=== PATIENT | female | born 1995 | race Hispanic/Latino ===

== ENCOUNTER 2019-10-03 01:28 | Inpatient (IN) | payer SELFPAY ==
[2019-10-03 01:52] VITALS: BMI 31.5
--- NOTE | 2019-10-03 01:58 | PDOC.FPROB ---
FMR OB H&P: HPI - History of Present Illness Chief Complaint: CTX Indentification: 23 yo G1 at 38.5wks by 9.4wk sono History of Present Illness: 23 yo G1 at 38.5wks by 9.4wk sono here for CTX. Has been having them on and off for the past day. Started again this evening and became more constant. No VB/VD/ LOF. Endorses FM. No dysuria. No fevers, chills. Hasn't been checked in clinic. Primary Care Physician: Dr. 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 - Surgical History Sx History: Denies - Social History Social History: Denies TAD - Family History Family History: Father with DM2 FMR OB H&P: Medications - Current Home Medications: Medication Instructions Recorded Confirmed Type Vitamin 1 tablet PO DAILY 10/03/19 10/03/19 History Allergies/Adverse Reactions: Allergies Allergy/AdvReac Type Severity Reaction Status Date / Time No Known Allergies Allergy Verified 10/03/19 01:46 FMR OB H&P: ROS - Review of Systems General: denies: fever/chills, weight/appetite/sleep changes ENT: denies: nasal congestion Cardiovascular: denies: chest pain, edema Gastrointestinal: denies: abdominal pain, diarrhea, constipation Genitourinary (Female): reports: contractions. denies: incontinence, dysuria, vaginal discharge, vaginal pain, vaginal bleeding, vaginal pressure Neurologic: denies: seizures, weakness Integumentary: denies: itching, rash Psychological: denies: depression, anxiety FMR OB H&P: Vital Signs - Heart Tones Baseline: 140 Variability: moderate Acceleration: present Deceleration: absent Category: category 1 [place] contractions every: uterine irritability FMR OB H&P: Physical Exam - Physical Exam General: NAD, awake, alert and oriented HEENT: normocephalic and atraumatic, PERRLA, EOMI, MMM, conjunctiva clear Neck: FROM, trachea midline Breast: symmetric, non-tender Heart: RRR, normal S1/S2 General: CTAB, no respiratory distress, good air movement Abdomen: soft, gravid Musculoskeletal: normal gait and station, pulses present, FROM in all four extremities Skin: no rash, good tugor Psychiatric: intact recent and remote memory, good judgement and insight - Pelvic Exam SVE: FMR OB H&P: A/P - Problem List (1) with 38 completed weeks gestation Status: Acute Code(s): Z3A.38 - 38 WEEKS GESTATION OF Discussion: Date/Time: 10/03/19 0156 23 yo G1 here for labor r/o 1. sIUP at 38 weeks -FHT: Cat I, uterine irritability -SVE: -Patient comfortable, will monitor, PO hydrate -Monitor for signs of active labor This H&P was discussed with Dr. Butterfield who agree with the above documentation and plan. Addendum - Attending - Attending Attestation Date/Time: 10/03/19620 I personally evaluated the patient and discussed the management with Dr. Diaz. I agree with the History, Examination, Assessment and Plan documented above.
--- NOTE | 2019-10-03 02:31 | PDOC.BPN ---
<Maribel Diaz - Last Filed: 10/03/19 02:31> - Brief Progress Note FHT: Cat I CTX q6min Discussed with patient she is not currently in labor; she may continue to experience CTX and discussed labor precautions She lives 5 min away and is comfortable with going home F/u at [facility] <Devan Butterfield - Last Filed: 10/03/19 06:22> Addendum - Attending - Attending Attestation Date/Time: 10/03/19621 I personally evaluated the patient and discussed the management with Dr. Diaz. I agree with the Assessment and Plan documented above.
== END 2019-10-04 09:48 | disposition home or self-care (01) | DRG 833 ==
LOC: L&D/OP 01:28 → L&D 10-04 07:00
PROVIDERS: ADMIT Obstetrics & Gynecology; ATTEND Obstetrics & Gynecology
DX: O62.9 Abnormality of forces of labor, unspecified (principal); Z3A.38 38 weeks gestation of pregnancy
CPT/HCPCS: 99283

== ENCOUNTER 2019-10-03 16:50 | Inpatient (IN) | payer MEDICAID, SELFPAY ==
[2019-10-03] MEDS ORDERED: hydrALAZINE 20 MG/ML VIAL SLOW IVP PRN (16:58)
[2019-10-03 17:11] LABS: Amnisure Test No Membranes Rupture (No Rupture)
[2019-10-03 17:12] LABS: Amnisure Internal Control QC ACCEPTABLE (ACCEPTABLE)
[2019-10-03 17:16] VITALS: BMI 31.8
--- NOTE | 2019-10-03 19:07 | PDOC.FPROB ---
FMR OB H&P: HPI - History of Present Illness Chief Complaint: LOF Indentification: G1 at 38.5W EGA by 1T US History of Present Illness: Patient is a 23 y/o G1 female at 38.5W EGA by 1T US who presents to L& D for evaluation of possible LOF. Patient states that she was in the shower at approximately 1500 when she noticed a reddish/green/clear mucoid substance leaked out of her vagina. Patient states that the total amount of fluid was smaller than a coin. Patient also states that she had noticed contractions that initially occurred Q20M but since had increased to Q10-15M, which have been increasing in severity/pain since they began. Patient endorses good movement at this time. Patient it Irish-speaking only, and an senior air director had to be used for the majority of the encounter. Patient's was present at bedside at the time of evaluation. Primary Care Physician: [facility] - Dr. Susan Perdomo FMR OB H&P: Current - Care : 1 Gestational age: 38.5W Due date: 10/12/19 Dating Criteria: 9.4W US Course/Complications: None - OB Labs Blood type: O RH: positive Antibody Screen: negative HIV: negative RPR: negative HepBsAg: negative Rubella: immune Quad screen: unknown Urine drug screen: not done Gonorrhea: negative Chlamydia: negative Pap Smear: NILM 1 hour gtt: 126 3 hour GTT: 89 A1c: 4.8 GBS: negative H&H: 13.2 - First Trimester Ultrasound First trimester: 9.4W US FMR OB H&P: History - Past Medical History PMH: None - OB History OB History: None. 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 - Surgical History Sx History: None. - Social History Social History: Denies Tobacco, EtOH, and Drug Abuse. 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 - Family History Family History: Father (DM2) FMR OB H&P: Medications - Current Home Medications: Medication Instructions Recorded Confirmed Type Vitamin 1 tablet PO DAILY 10/03/19 10/04/19 History Allergies/Adverse Reactions: Allergies Allergy/AdvReac Type Severity Reaction Status Date / Time No Known Allergies Allergy Verified 10/03/19 01:46 FMR OB H&P: ROS - Review of Systems General: reports: fatigue. denies: fever/chills, recent trauma Eyes: denies: vision changes ENT: denies: nasal congestion, rhinorrhea, frequent nose bleed, ear pain, sore throat Cardiovascular: denies: chest pain Respiratory: denies: cough, shortness of breath Gastrointestinal: denies: nausea, vomiting, diarrhea, bright red blood Genitourinary (Female): reports: vaginal discharge. denies: dysuria, hematuria , vaginal bleeding Musculoskeletal: denies: pain, arthritis/arthralgias Neurologic: denies: syncope, seizures, headache Integumentary: reports: rash FMR OB H&P: Vital Signs - Maternal Vital signs: Vital Signs - First Documented Temp Pulse Resp BP 98.2 F 77 18 124/76 10/03/19 16:58 10/03/19 16:58 10/03/19 16:58 10/03/19 16:58 - Heart Tones Baseline: 130 Variability: moderate Acceleration: present Deceleration: absent Category: category 1 [place] contractions every: Q5M FMR OB H&P: Physical Exam - Physical Exam General: NAD, awake, alert and oriented HEENT: normocephalic and atraumatic, PERRLA, EOMI, MMM, conjunctiva clear, no scleral icterus, grossly normal vision, grossly normal hearing, normal nasal mucosa, oropharynx clear Neck: supple, FROM, trachea midline, no LAD Chest: non-tender to palpation, no lesions Breast: symmetric Heart: RRR, normal S1/S2, no murmurs/rubs/gallops, pulses present, no edema General: CTAB, no respiratory distress, good air movement, no rales/rhonchi, no wheezing, no retractions Abdomen: gravid, non-tender Musculoskeletal: pulses present, FROM in all four extremities, no misalignment/ asymmetry, no atrophy Neurological: sensation to pain,touch and proprioception grossly normal Skin: good tugor, capillary refill <2 seconds, no jaundice Lymphatic: no unusual bruising or bleeding, no purpura, no petechia, no LAD Psychiatric: intact recent and remote memory, good judgement and insight, normal mood and affect - Pelvic Exam SVE: 4/70/-2 Aguilera score: 8 Membranes: Unknown Presentation: Vertex FMR OB H&P: Results - Labs Lab results: Laboratory Results - last 24 hr 10/03/19 16:23 Amnio Swab Test No Membranes Rupture FMR OB H&P: A/P - Problem List (1) with 38 completed weeks gestation Current Visit: Yes Status: Resolved Code(s): Z3A.38 - 38 WEEKS GESTATION OF Disposition: Patient is a 23 y/o G1 @ 38.5W EGA by 9.4W US who presents to L&D for evaluation of suspected LOS. 1. SIUP -Patient's history is most consistent with a lost mucus plug - ROS negative for red flag warning signs -Records requested from [facility] - will review to ensure accuracy -MVSS with unremarkable Physical Exam -FHTs in the 130s with acels present, no decels noted - CTX Q5M -Speculum Exam: Closed Cervix with large amounts of mucus noticed - no pooling of amniotic fluid and no loss of fluid upon valsalva or cough -Per chart review, Patient presented to L&D @ 0100 with a subsequent SVE of /-2 -SVE (1745): /-2, CTX Q5M -Amniosure: Negative PCP: Dr. Susan Perdomo ([facility]) Dispo: Patient is currently stable on L&D with suspected loss of mucous plug. No evidence of ROM at this time. Patient has made cervical change since prior evaluation at 0100. Will encourage patient to ambulate on L&D to alleviate pain from CTX and will plan to repeat SVE in 2H. Will evaluate clinically at that time and admit for ongoing labor if patient has made cervical change. Discussion: Date/Time: 10/03/191900 This H&P was discussed with [] and [] who agree with the above documentation and plan. Addendum - Attending - Attending Attestation Date/Time: 10/06/19 808 I personally evaluated the patient and discussed the management with Dr. Singh. I agree with the History, Examination, Assessment and Plan documented above with any addition or exceptions noted below. Pt has experienced cervical change to 5 cm/90 and was admitted to the hospital for labor management.
[2019-10-03] MEDS: Lactated Ringer's 1,000 ML IV SCH (19:15)
[2019-10-03] MEDS ORDERED: Ibuprofen 800 MG TAB PO PRN (20:01)
[2019-10-03] MEDS ORDERED: Ondansetron PF 4 MG/2 ML Vial IVP PRN (20:01)
[2019-10-03] MEDS ORDERED: NS / Oxytocin 40 units/1000ml 1,000 ML IV PRN (20:01)
[2019-10-03] MEDS ORDERED: Misoprostol 200 MCG TAB PR PRN (20:01)
[2019-10-03] MEDS ORDERED: Docusate 100 MG CAP PO PRN (20:01)
[2019-10-03] MEDS ORDERED: Promethazine HCl 25 MG/ML VIAL IM PRN (20:01)
[2019-10-03] MEDS ORDERED: Acetaminophen 500 MG TAB PO PRN (20:01)
[2019-10-03] MEDS ORDERED: Lidocaine 1% (PF) 30 ML VIAL SC PRN (20:01)
--- NOTE | 2019-10-03 20:01 | PDOC.LDPN ---
Labor & Delivery Progress Note - Subjective Subjective: painful contractions, vaginal pressure - Objective Vital signs reviewed and normal: yes General: breathing through contractions Dilation: /0 FHT: category 1, variability present Clever contractions every: q3-4 mins Plan: continue plan of care -: Patient is a 23 y/o G1 @ 38.5W EGA by 9.4W US who presents in latent labor with cervical change from previous check: 1. SIUP -FHTs in the 130s with acels present, no decels noted - CTX Q3-4 mins -SVE 90/0 -Membranes Intact -Admission orders placed 2. GBS Negative PCP: Dr. Susan Perdoom ([facility]) Dispo: Patient is making change on her own, will not initiate augmentation, recheck in 4 hours for progression, Cat 1 strip.
[2019-10-03 20:41] LABS: Hemoglobin 13.9 g/dL (12.0-16.0); Mean Corpuscular HGB CONC 35.2 g/dL (32.0-36.0); Mean Corpuscular Hemoglobin 31.3 pg (27.0-31.0); Mean Platelet Volume 9.1 fL (7.4-10.4); Platelet Count 186 thou/uL (130-400); Red Blood Cell (RBC) Count 4.44 mill/uL (4.20-5.40); White Blood Cell (WBC) Count 13.4 thou/uL (4.8-10.8)
[2019-10-03 21:33] LABS: Syphilis Antibody Nonreactive (Nonreactive); Syphilis Antibody Index 0.04 S/CO (<1.00 Non-Reactive)
[2019-10-03 22:16] LABS: HBSAg Index 0.24 S/CO (0-0.99); HIV (1/2) Antibody/Antigen Non-Reactive (NonReactive); HIV 1/2 INDEX 0.08 S/CO (<1.00); Hep B Surf Ag Non-Reactive S/CO (NonReactive)
[2019-10-03] MEDS: Butorphanol Tartrate 1 MG/ML VIAL SLOW IVP PRN (23:45)
--- NOTE | 2019-10-03 23:57 | PDOC.LDPN ---
Labor & Delivery Progress Note - Subjective Subjective: painful contractions - Objective Vital signs reviewed and normal: yes General: breathing through contractions - Assessment (1) with 38 completed weeks gestation Code(s): Z3A.38 - 38 WEEKS GESTATION OF Current Visit: No Status: Acute -: Patient is a 23 y/o G1 @ 38.6W EGA by 9.4W US 1. SIUP -FHTs in the 130s with accels present, no decels noted - CTX Q3-4 mins -SVE 6.5/100/0 - AROM 2200 - cont expectant mgmt
--- NOTE | 2019-10-04 00:47 | PDOC.LDPN ---
Labor & Delivery Progress Note - Subjective Subjective: painful contractions - Objective Vital signs reviewed and normal: yes - Assessment (1) with 38 completed weeks gestation Code(s): Z3A.38 - 38 WEEKS GESTATION OF Current Visit: No Status: Acute -: Patient is a 23 y/o G1 @ 38.6W EGA by 9.4W US 1. SIUP -FHTs in the 130s with accels present, no decels noted - CTX Q3-4 mins -SVE 8/100/0 - AROM 2200 - cont expectant mgmt
[2019-10-04] MEDS: Butorphanol Tartrate 1 MG/ML VIAL SLOW IVP PRN ×2 (02:21→05:15)
[2019-10-04] MEDS ORDERED: NS w/ Oxytocin 10 units 500 ML ONE (03:06)
--- NOTE | 2019-10-04 03:22 | PDOC.LDPN ---
Labor & Delivery Progress Note - Subjective Subjective: painful contractions - Assessment (1) with 38 completed weeks gestation Code(s): Z3A.38 - 38 WEEKS GESTATION OF Current Visit: No Status: Acute -: 1. SIUP -FHTs in the 130s with accels present, no decels noted - CTX Q3-4 mins -SVE 7-8/100/0, unchanged will start pitocin - AROM 2200 - cont expectant mgmt
--- NOTE | 2019-10-04 05:23 | PDOC.LDPN ---
Labor & Delivery Progress Note - Subjective Subjective: painful contractions - Objective Vital signs reviewed and normal: yes - Assessment (1) with 38 completed weeks gestation Code(s): Z3A.38 - 38 WEEKS GESTATION OF Current Visit: No Status: Acute -: 1. SIUP - Category II strip - variables and early decels present - baseline 130, moderate variability - no accels - CTX q2-3 min - SVE 8/100/+1, 4 of pitocin - advanced 1cm over last 2 hours - AROM 2200 - cont expectant mgmt
[2019-10-04] MEDS: Lactated Ringer's 1,000 ML IV SCH (05:55)
[2019-10-04] MEDS ORDERED: Dextrose 5%-Lactated Ringers 1,000 ML IV SCH (06:00)
--- NOTE | 2019-10-04 08:31 | PDOC.OPDEL ---
OB Operative/Delivery Note Delivery Dr/Surgeon: Dr. Tung Singh Assist: Dr. Susan Perdomo Pre-Delivery Diagnosis: active labor Procedure/Post Delivery Dx: spontaneous vaginal delivery Weeks gestation: 38 (6) Anesthesia: none - Additional Findings/Plan Placenta delivered: spontaneous Repaired Obstetrical Laceration: 2nd degree (A 1 cm 2nd Degree Laceration was noted at the 6 o'clock position, but this was not repaired surgically as it was hemodynamically stable. Additionally, two 0.5 cm Abrasions were noted in the Per -Urethral region at the 11 and 1 o'clock position.) Estimated blood loss: 200 ml Compilations/Other Findings: Delivering Physician: Dr. Tung Singh Assisting Physician: Dr. Susan Perdomo Attending Physician: Dr. Arthur Rubio Procedure: Spontaneous Vaginal Delivery Anesthesia: None QBL: 180 ml Pre-Op Diagnosis: 1. Term Intrauterine , Active Labor Post-Op Diagnosis: 1. Term Intrauterine , Delivered Indications: A 23 y/o > female in active labor. Delivery Note: This is 23 y/o > female @ 38.6W EGA by 9.4W who delivered a viable M at 0805 on 10/04/19. Following an uneventful intrapartum course, a vigorous M was delivered over an intact perineum in the FADI position. The anterior shoulder and then remainder of the body was delivered. No nuchal cord was noted. The head was held down and mouth and nares were bulb suctioned. Cord was clamped, cut and cord blood was collected. Placenta delivered intact in the [place] presentation with a 3 vessel cord noted. Fundal massage was performed and the fundus was firm. The cervix and vagina were inspected and found to have two 0.5 cm Priya-Urethral Abrasions at the 11 and 1 o'clock positions, and a 1 cm 2nd Degree Laceration was noted at the 6 o'clock position - all were hemodynamically stable and no surgical intervention was required. The infant was sent to the Nursery in good condition for routine care. APGARS were 9/9 at 1 & 5 minutes, respectively. The patient tolerated the delivery well and went to [facility] Floor for routine recovery/ care. Post delivery plan: routine recovery Addendum - Attending - Attending Attestation Date/Time: 10/06/19 0103 I personally evaluated the patient and discussed the management with Dr. Singh I agree with the History, Examination, Assessment and Plan documented above with any addition or exceptions noted below. I was present and supervising for the entire 2nd and 3rd stages of labor.
[2019-10-04] MEDS ORDERED: Preparation H Ointment 28 GM TUBE PR PRN (09:36)
[2019-10-04] MEDS ORDERED: Ondansetron PF 4 MG/2 ML Vial IVP PRN (09:36)
[2019-10-04] MEDS ORDERED: Lanolin Ointment 7 GM TUBE TOP PRN (09:36)
[2019-10-04] MEDS ORDERED: Bisacodyl 10 MG SUPP PR PRN (09:36)
[2019-10-04] MEDS ORDERED: Milk Of Magnesia 30 ML UDCUP PO PRN (09:36)
[2019-10-04] MEDS ORDERED: Benzocaine-Menthol 82.5 ML CAN TOP PRN (09:36)
[2019-10-04] MEDS ORDERED: hydrALAZINE 20 MG/ML VIAL SLOW IVP PRN (09:36)
[2019-10-04] MEDS ORDERED: NS / Oxytocin 40 units/1000ml 1,000 ML IV SCH (09:36)
[2019-10-04] MEDS ORDERED: diphenhydrAMINE 25 MG CAP PO PRN (09:36)
[2019-10-04] MEDS ORDERED: Docusate Calcium (SURFAK) 240 MG CAP PO SCH (10:00)
[2019-10-04] MEDS ORDERED: Adacel (T-DAP) 0.5 ML SYRINGE IM ONE (10:00)
[2019-10-04] MEDS ORDERED: Prenatal Vitamin 1 TAB PO SCH (10:00)
[2019-10-04] MEDS: Ibuprofen 800 MG TAB PO SCH ×3 (10:10→23:09)
[2019-10-04] MEDS: Ferrous Sulfate 325 MG TAB PO SCH (16:41)
[2019-10-04] MEDS: Docusate Calcium (SURFAK) 240 MG CAP PO SCH (21:39)
[2019-10-05] MEDS: Ibuprofen 800 MG TAB PO SCH ×3 (05:44→21:19)
--- NOTE | 2019-10-05 06:51 | PDOC.OBPPN ---
FMR OB PN: Subj - Interval History Hospital Day: 1 Day: 1 Chief Complaint: SIUP, delivered Indentification: Interval History: No acute overnight events FMR OB PN: Obj - Maternal Vital signs: BP: [120/56] HR: [81] RR: [20] Tmax: [98] Pox: [97]% on [Room Air] Wt: [] - Urine output I&O: 10/03/19 10/04/19 10/05/19 06:59 06:59 06:59 Output Total 171 Balance -171 - Lochia Lochia: Mild - similar to a light period, per patient - Pain Management Pain scale: 1 Intervention: oral medication FMR OB PN: Exam - Physical Exam General: NAD, awake, alert and oriented HEENT: normocephalic and atraumatic, PERRLA, EOMI, MMM, conjunctiva clear, no scleral icterus, grossly normal vision, grossly normal hearing, normal nasal mucosa, oropharynx clear, good dention Neck: supple, FROM, trachea midline, no LAD Chest: non-tender to palpation Breast: symmetric Heart: RRR, normal S1/S2, no murmurs/rubs/gallops, pulses present Deviation from normal: Mild +1 LE Edema, bilaterally General: CTAB, no respiratory distress, good air movement, no rales/rhonchi, no wheezing, no retractions Abdomen: soft, fundus(cm) (Below level of umbilicus), non-tender, bowel sound present, no masses Musculoskeletal: normal gait and station, pulses present, FROM in all four extremities, no misalignment/asymmetry, no atrophy Neurological: sensation to pain,touch and proprioception grossly normal, no clonus, no tremor, no focal deficit Deviation from normal: 2/4 Reflexes at Brachioradialis and Patellar Tendons Skin: no rash, no jaundice Lymphatic: no unusual bruising or bleeding, no purpura, no petechia, no LAD Psychiatric: intact recent and remote memory, good judgement and insight, normal mood and affect - Pelvic Exam : non-tender, normal lochia FMR OB PN: A/P Disposition: Patient is an 23 y/o > female who delivered a TAGAM via at 38.6W EGA by 9.4W US on 10/04/19 at 0805, currently recovering on [facility] Floor. 1. SIUP, Resolved -Patient recovering well on [facility] Floor - no documented events overnight and no events noted by Nursing Staff -Tolerating PO intake well -VSS - no elevated BPs or fevers noted, per chart review -Physical Exam WNL -Neuro Exam WNL -Minimal lochia -Pain controlled with Ibuprofen, Dermoplast -Bilateral Priya-Urethral Abrasions and hemodynamically stably 1st Degree Laceration noted during delivery - no reported difficulty with urination reported -Patient desires to breastfeed - consulted PCP: [facility] - Dr. Susan Perdomo Dispo: Patient appears to be recovering well on [facility] Floor following successful . Continue routine care and plan for DC pending ' s clinical course. Expected LOS < 48H. Discussion: Date/Time: 10/05/19 0218 This H&P was discussed with [] and [] who agree with the above documentation and plan. Addendum - Attending - Attending Attestation Date/Time: 10/06/19 0500 I personally evaluated the patient and discussed the management with Dr. Singh. I agree with the History, Examination, Assessment and Plan documented above.
[2019-10-05] MEDS: Ferrous Sulfate 325 MG TAB PO SCH ×2 (07:41→10:41)
[2019-10-05] MEDS: Prenatal Vitamin 1 TAB PO SCH (10:04)
[2019-10-05] MEDS: Docusate Calcium (SURFAK) 240 MG CAP PO SCH ×2 (10:04→21:19)
[2019-10-06] MEDS: Ibuprofen 800 MG TAB PO SCH (05:06)
--- NOTE | 2019-10-06 07:41 | PDOC.PP ---
Post Progress Note Post Day #: 2 Subjective: 23 yo G1 now P1 pp day 2. Pt report pain well controlled and all pp milestones met. Ok for DC to home today. PO intake tolerated: yes Flatus: yes Ambulation: yes Vital Signs (12 hours) Temp Pulse Resp BP Pulse Ox 10/05/19 19:55 98.4 F 71 18 109/66 99 Weight Weight 81.647 kg - Physical Examination General: NAD Cardiovascular: no m/r/g, RRR Respiratory: clear to auscultation bilaterally, non-labored breathing Abdominal: + bowel sounds, no distention, appropriately TTP Skin: CS incision dry & intact, no rash Neurological: no gross focal deficits Psychiatric: normal affect Result Diagrams: 10/03/19 20:33 Additional Labs: Post Labs Blood Type O POSITIVE 10/03/19 20:54 Hep Bs Antigen Non-Reactive S/CO (NonReactive) 10/03/19 20:33 (1) Vaginal delivery Code(s): O80 - ENCOUNTER FOR FULL-TERM UNCOMPLICATED DELIVERY Status: Acute - Assessment/Plan 1. SIUP, Resolved - all pp milestones met - VSS - ok for DC today with f/u at [facility] in 2 weeks PCP: [facility] - Dr. Susan Perdomo Dispo: Stable, plan for DC to home today vs bed and breakfast pending clinical status.
[2019-10-06] MEDS: Docusate Calcium (SURFAK) 240 MG CAP PO SCH (08:23)
[2019-10-06] MEDS: Ferrous Sulfate 325 MG TAB PO SCH (08:23)
[2019-10-06] MEDS: Prenatal Vitamin 1 TAB PO SCH (08:23)
[2019-10-06 08:35] VITALS: BP 108/53; TEMP 98
[2019-10-08] MEDS ORDERED: hydrALAZINE 20 MG/ML VIAL SLOW IVP PRN (12:27)
== END 2019-10-06 18:15 | disposition home or self-care (01) | DRG 807 ==
LOC: L&D/OP 16:50 → L&D 20:01 → L&D-LIB 10-04 10:15 → L&D 10-04 10:16 → 3SW 10-04 10:56
PROVIDERS: ADMIT Obstetrics & Gynecology; ATTEND Obstetrics & Gynecology
PROC: 10E0XZZ Delivery of Products of Conception, External Approach (ICD-10-PCS; principal; 2019-10-04)
PROC: 10907ZC Drainage of Amniotic Fluid, Therapeutic from Products of Conception, Via Natural or Artificial Opening (ICD-10-PCS; 2019-10-04)
PROC: 3E033VJ Introduction of Other Hormone into Peripheral Vein, Percutaneous Approach (ICD-10-PCS; 2019-10-04)
DX: O70.1 Second degree perineal laceration during delivery (principal); Z37.0 Single live birth; Z3A.38 38 weeks gestation of pregnancy
CPT/HCPCS: 36415; 84112; 85027; 86780; 86850; 86900; 86901; 87340; 87389; 99285; J0595; J2590

== ENCOUNTER 2021-04-13 09:47 | Outpatient (CLI) | payer OTHER | END 2021-04-13 09:48 | disposition home or self-care (01) | LOC: BICULT 09:47 | PROVIDERS: ATTEND Family Medicine | DX: Z34.82 Encounter for supervision of other normal pregnancy, second trimester (principal); Z3A.22 22 weeks gestation of pregnancy | CPT/HCPCS: 76805 ==